=== PATIENT | male | born 1935 | race Two or more races ===

== ENCOUNTER 2018-01-22 20:40 | Inpatient (IN) | payer OTHER ==
[~2018-01-22] VITALS: Ht 182.9 cm; Wt 59.0 kg
[2018-01-22 20:25] VITALS: BP 139/58
[2018-01-22 22:00] VITALS: BP 119/54
[2018-01-22] MEDS ORDERED: NITROGLYCERIN 0.4 MG SL TAB SL PRN (22:00)
[2018-01-22] MEDS ORDERED: ONDANSETRON HCL 4 MG/2 ML VIAL IV PRN (22:00)
[2018-01-22] MEDS ORDERED: MORPHINE SULF INJ 2 MG/ML SYRINGE 1ML IV PRN (22:00)
[2018-01-22] MEDS ORDERED: ACETAMINOPHEN 325 MG TAB PO PRN (22:00)
[2018-01-22] MEDS ORDERED: HYDROcodone-ACET 5/325MG TAB PO PRN (22:00)
[2018-01-22 22:30] VITALS: BP 117/69
[2018-01-22 22:43] LABS: Basophils # (auto) 0 uL; Basophils % (auto) 0.2 % (0.0-2.0); Eosinophils # (auto) 0 uL; Eosinophils % (auto) 0.1 % (0.0-7.0); Hemoglobin 20.7 g/dL (13.5-17.5); Lymphocytes # (auto) 0.5 uL; Lymphocytes % (auto) 4.9 % (10.0-50.0); Mean Corpuscular Hemoglobin 32.8 pg (28.0-32.0); Mean Corpuscular Hgb Conc. 34.3 g/dL (32.0-36.0); Mean Corpuscular Volume 95.5 fL (80.0-100.0); Monocytes # (auto) 0.7 uL; Monocytes % (auto) 6.3 % (0.0-12.0); Neutrophils # (auto) 9.9 uL; Neutrophils % (auto) 88.5 % (37.0-80.0); Nucleated Red Blood Cells % 0.1 %; Platelet Count (auto) 135 10^3/uL (140-450); Red Blood Cells 6.33 10^6/uL (4.5-5.90); Red Cell Distribution Width 14.4 % (11.8-14.3); White Blood Cell 11.2 10^3/uL (4.4-10.8)
[2018-01-22 22:48] LABS: Hematocrit 60.4 % (41.0-53.0)
[2018-01-22 23:00] VITALS: BP 107/64
[2018-01-22 23:02] LABS: INR 1.25 (0.9-1.15); Prothrombin Time 13.2 sec (9.27-12.13)
[2018-01-22 23:13] LABS: Albumin 3.2 g/dL (3.4-5.0); BUN/Creatinine Ratio 41.5; Bilirubin, Total 4.6 mg/dL (0.2-1.0); Calcium 8.3 mg/dL (8.5-10.1); Total Protein 6.4 g/dL (6.4-8.2)
[2018-01-22 23:30] VITALS: BP 132/68
[2018-01-23] VITALS (18 sets, daily range): BP systolic 101–143; BP diastolic 48–89
[2018-01-23] MEDS ORDERED: cefTRIAXone 1GM/10ml IVPUSH 10 ML IV ONE
[2018-01-23] MEDS ORDERED: SODIUM CHLORIDE 0.9% 1,000 ML IV ONE
[2018-01-23] MEDS: SODIUM CHLORIDE 0.9% 1,000 ML IV SCH ×2 (01:00→10:54)
[2018-01-23 01:06] LABS: Urine Bacteria FEW /hpf (None Seen); Urine Blood 3+ /uL (Negative); Urine Hyaline Cast FEW /lpf (0 - 2); Urine Mucus FEW (None Seen); Urine Specific Gravity 1.018 (1.001-1.035); Urine WBC 122 /hpf (0 - 3)
[2018-01-23] MEDS ORDERED: LEVA1AER IN (01:25)
[2018-01-23 03:46] LABS: Basophils # (auto) 0 uL; Eosinophils # (auto) 0 uL; Hemoglobin 19.3 g/dL (13.5-17.5); Lymphocytes # (auto) 0.4 uL; Mean Corpuscular Volume 95.6 fL (80.0-100.0); Monocytes # (auto) 0.7 uL; Nucleated Red Blood Cells % 0.1 %
[2018-01-23 03:49] LABS: Lymphocytes % (auto) 2.2 % (10.0-50.0); Mean Corpuscular Hemoglobin 32.2 pg (28.0-32.0); Mean Corpuscular Hgb Conc. 33.6 g/dL (32.0-36.0); Monocytes % (auto) 4.4 % (0.0-12.0); Neutrophils # (auto) 15.1 uL; Neutrophils % (auto) 93.4 % (37.0-80.0); Platelet Count (auto) 128 10^3/uL (140-450); Red Cell Distribution Width 14.6 % (11.8-14.3); White Blood Cell 16.2 10^3/uL (4.4-10.8)
[2018-01-23 04:01] LABS: Hematocrit 57.3 % (41.0-53.0)
[2018-01-23 04:08] LABS: Alanine Aminotransferase 46 U/L (16-61); Albumin 2.5 g/dL (3.4-5.0); Anion Gap 12 (5-15); Aspartate Aminotransferase 193 U/L (15-37); BUN/Creatinine Ratio 47.1; Calcium 7.9 mg/dL (8.5-10.1); Carbon Dioxide 17 mmol/L (21-32); Chloride 112 mmol/L (98-107); GFR African American 36 mL/min; GFR Non-African American 30 mL/min; Glucose 82 mg/dL (74-106); Potassium 4.7 mmol/L (3.5-5.1); Sodium 141 mmol/L (136-145)
[2018-01-23 04:11] LABS: Alkaline Phosphatase 46 U/L (45-117); Bilirubin, Total 4.5 mg/dL (0.2-1.0); Total Protein 5.4 g/dL (6.4-8.2)
[2018-01-23 04:16] LABS: Blood Urea Nitrogen 107 mg/dL (7-18)
[2018-01-23] MEDS: ASPirin 81 mg TAB PO SCH ×2 (10:00→10:53)
[2018-01-23] MEDS: PANTOPRAZOLE 40 MG TAB PO SCH ×2 (10:00→10:54)
[2018-01-23] MEDS ORDERED: ENOXAPARIN SOD 30 MG/0.3 ML SYRINGE SC SCH (10:00)
[2018-01-23] MEDS: cefTRIAXone 1GM/10ml IVPUSH 10 ML IV SCH (10:54)
[2018-01-23] MEDS ORDERED: SODIUM BICARBONATE 50ML VIAL 50 ML in D5W 5% 1,000 ML IV ONE (11:30)
[2018-01-23] MEDS: SODIUM BICARBONATE 50ML VIAL 50 ML in D5W 5% 1,000 ML IV SCH (13:45)
[2018-01-23] MEDS: CLINDAMYCIN 600MG IV 50 ML IV SCH ×2 (15:49→21:45)
[2018-01-24] VITALS: BP 132/85
[2018-01-24] MEDS: SODIUM BICARBONATE 50ML VIAL 50 ML in D5W 5% 1,000 ML IV SCH (00:08)
[2018-01-24 04:00] VITALS: BP 113/57
[2018-01-24 05:22] LABS: Basophils # (auto) 0 uL; Eosinophils # (auto) 0 uL; Lymphocytes # (auto) 0.4 uL; Lymphocytes % (auto) 2.2 % (10.0-50.0); Mean Corpuscular Hemoglobin 32.4 pg (28.0-32.0); Monocytes # (auto) 0.7 uL; Neutrophils # (auto) 17.2 uL
[2018-01-24 05:25] LABS: Hemoglobin 18.9 g/dL (13.5-17.5); Mean Corpuscular Hgb Conc. 33.7 g/dL (32.0-36.0); Mean Corpuscular Volume 96.1 fL (80.0-100.0); Neutrophils % (auto) 93.8 % (37.0-80.0); Platelet Count (auto) 90 10^3/uL (140-450); Red Blood Cells 5.84 10^6/uL (4.5-5.90); Red Cell Distribution Width 14.6 % (11.8-14.3); White Blood Cell 18.3 10^3/uL (4.4-10.8)
[2018-01-24 05:28] LABS: Alcohol, Urine < 3.0 mg/dL (0-5); Amphetamine Screen, Urine NEGATIVE (NEGATIVE); Barbiturate Scree,Urine NEGATIVE (NEGATIVE); Benzodiazephine Screen, Urine NEGATIVE (NEGATIVE); Cannabinoid Screen, Urine NEGATIVE (NEGATIVE); Cocaine Screen, Urine NEGATIVE (NEGATIVE); Opiate Scree,Urine NEGATIVE (NEGATIVE); Phencyclidine Screen, Urine NEGATIVE (NEGATIVE)
[2018-01-24 05:36] LABS: Hematocrit 56.1 % (41.0-53.0)
[2018-01-24] MEDS: CLINDAMYCIN 600MG IV 50 ML IV SCH ×3 (05:46→21:49)
[2018-01-24 05:53] LABS: BUN/Creatinine Ratio 46.7; Calcium 7.9 mg/dL (8.5-10.1); Magnesium 3.6 mg/dL (1.6-2.6); Potassium 4.8 mmol/L (3.5-5.1)
[2018-01-24 07:30] VITALS: BP 138/67
[2018-01-24] MEDS: PANTOPRAZOLE 40 MG TAB PO SCH ×2 (10:00→17:39)
[2018-01-24] MEDS: D5W/SOD CHL 0.45% 1,000 ML IV SCH ×2 (10:31→21:49)
[2018-01-24] MEDS: cefTRIAXone 1GM/10ml IVPUSH 10 ML IV SCH (10:32)
[2018-01-24 12:00] VITALS: BP 101/58
[2018-01-24 16:00] VITALS: BP 128/63
[2018-01-24 20:00] VITALS: BP 130/73
[2018-01-25] VITALS (7 sets, daily range): BP systolic 97–132; BP diastolic 40–84
[2018-01-25] MEDS: D5W/SOD CHL 0.45% 1,000 ML IV SCH ×2 (04:07→14:43)
[2018-01-25] MEDS: CLINDAMYCIN 600MG IV 50 ML IV SCH ×3 (05:14→21:36)
[2018-01-25 05:33] LABS: Basophils # (auto) 0 uL; Basophils % (auto) 0.1 % (0.0-2.0); Eosinophils # (auto) 0 uL; Eosinophils % (auto) 0.1 % (0.0-7.0); Hematocrit 54.5 % (41.0-53.0); Hemoglobin 18.5 g/dL (13.5-17.5); Lymphocytes # (auto) 0.5 uL; Lymphocytes % (auto) 2.5 % (10.0-50.0); Mean Corpuscular Hemoglobin 32.3 pg (28.0-32.0); Mean Corpuscular Hgb Conc. 33.9 g/dL (32.0-36.0); Mean Corpuscular Volume 95.3 fL (80.0-100.0); Monocytes % (auto) 5.3 % (0.0-12.0); Neutrophils # (auto) 17.7 uL; Platelet Count (auto) 86 10^3/uL (140-450); Red Blood Cells 5.72 10^6/uL (4.5-5.90); Red Cell Distribution Width 14.3 % (11.8-14.3); White Blood Cell 19.2 10^3/uL (4.4-10.8)
[2018-01-25 05:39] LABS: BUN/Creatinine Ratio 45.3; Calcium 7.8 mg/dL (8.5-10.1); Potassium 4.8 mmol/L (3.5-5.1)
[2018-01-25] MEDS: PANTOPRAZOLE 40 MG TAB PO SCH (10:17)
[2018-01-25] MEDS: cefTRIAXone 1GM/10ml IVPUSH 10 ML IV SCH (10:18)
[2018-01-26] MEDS: D5W/SOD CHL 0.45% 1,000 ML IV SCH (03:58)
[2018-01-26 05:00] VITALS: BP 125/75
[2018-01-26] MEDS: CLINDAMYCIN 600MG IV 50 ML IV SCH (06:09)
[2018-01-26 06:34] LABS: Basophils # (auto) 0 uL; Eosinophils # (auto) 0 uL; Eosinophils % (auto) 0.1 % (0.0-7.0); Hematocrit 52.2 % (41.0-53.0); Hemoglobin 17.4 g/dL (13.5-17.5); Lymphocytes # (auto) 0.5 uL; Lymphocytes % (auto) 3.9 % (10.0-50.0); Mean Corpuscular Hgb Conc. 33.4 g/dL (32.0-36.0); Mean Corpuscular Volume 95.8 fL (80.0-100.0); Monocytes # (auto) 0.9 uL; Monocytes % (auto) 7.3 % (0.0-12.0); Neutrophils # (auto) 11.3 uL; Neutrophils % (auto) 88.7 % (37.0-80.0); Platelet Count (auto) 94 10^3/uL (140-450); Red Blood Cells 5.45 10^6/uL (4.5-5.90); Red Cell Distribution Width 14.7 % (11.8-14.3); White Blood Cell 12.8 10^3/uL (4.4-10.8)
[2018-01-26 06:51] LABS: BUN/Creatinine Ratio 46.7; Calcium 7.7 mg/dL (8.5-10.1); Potassium 4.4 mmol/L (3.5-5.1)
[2018-01-26 08:20] VITALS: BP 115/53
[2018-01-26] MEDS ORDERED: HYDROcodone-ACET 5/325MG TAB PO PRN (09:30)
[2018-01-26] MEDS ORDERED: D5W 5% 1,000 ML IV SCH (09:30)
[2018-01-26] MEDS ORDERED: MORPHINE SULF INJ 2 MG/ML SYRINGE 1ML IV PRN (09:30)
[2018-01-26] MEDS: PANTOPRAZOLE 40 MG TAB PO SCH (09:43)
[2018-01-26] MEDS: cefTRIAXone 1GM/10ml IVPUSH 10 ML IV SCH (09:43)
[2018-01-26] MEDS ORDERED: LEVOFLOXACIN 750MG 150 ML IV SCH (12:01)
== END 2018-01-26 12:30 | disposition expired | DRG 871 ==
LOC: ICU WEST 20:40 → DOU IN ICU 01-23 06:00 → TELE-WESTW 01-25 12:55
PROVIDERS: ADMIT Internal Medicine; ATTEND Internal Medicine
DX: A41.9 Sepsis, unspecified organism (principal); E43 Unspecified severe protein-calorie malnutrition; I21.4 Non-ST elevation (NSTEMI) myocardial infarction; J69.0 Pneumonitis due to inhalation of food and vomit; N17.0 Acute kidney failure with tubular necrosis; J96.00 Acute respiratory failure, unspecified whether with hypoxia or hypercapnia; S52.592A Other fractures of lower end of left radius, initial encounter for closed fracture; Z68.1 Body mass index [BMI] 19.9 or less, adult; E87.2 Acidosis; I45.2 Bifascicular block; N39.0 Urinary tract infection, site not specified; R17 Unspecified jaundice; E86.0 Dehydration; I11.9 Hypertensive heart disease without heart failure; I08.0 Rheumatic disorders of both mitral and aortic valves; I70.0 Atherosclerosis of aorta; T79.6XXA Traumatic ischemia of muscle, initial encounter; I48.2 Chronic atrial fibrillation; N32.9 Bladder disorder, unspecified; R31.0 Gross hematuria; R62.7 Adult failure to thrive; L89.90 Pressure ulcer of unspecified site, unspecified stage; W18.39XA Other fall on same level, initial encounter; Y93.89 Activity, other specified; Y92.098 Other place in other non-institutional residence as the place of occurrence of the external cause; Y99.8 Other external cause status
CPT/HCPCS: 36415; 71045; 73110; 74176; 76775; 80048; 80053; 80307; 81001; 82550; 83605; 83735; 83874; 83880; 84100; 84484; 85025; 85379; 85610; 85730; 87040; 87070; 87077; 87081; 87086; 87186; 87205; 92610; 93306; 93971; 97163; A6257; J0696; J1956; J3490; J7042